=== PATIENT | female | born 1975 | race Caucasian/White ===

== ENCOUNTER 2021-05-24 14:41 | Emergency (ER) | payer OTHER ==
[~2021-05-24] VITALS: Ht 172.7 cm; Wt 93.4 kg
[2021-05-24] MEDS ORDERED: LACTATED RINGERS 1,000 ML IV STA (14:52)
--- NOTE | 2021-05-24 14:52 | ED Chest Pain ---
General Stated Complaint: CHEST PAIN Source: patient, other (urgent care LOCKER ROOM ATTENDANT) Exam Limitations: no limitations History of Present Illness Date Seen by Provider: May 24, 2021 Time Seen by Provider: 14:44 Initial Comments 45yoF with past medical history of hyperlipidemia coming in due to chest pain. She was at work around 1130, began feeling mid chest burning pain going through to her back that has been constant. No shortness of breath, nausea, vomiting, weakness, numbness, abdominal pain, or any other concerns associated with it. Presented to the urgent care, had an EKG done which was reportedly normal, and is referred here for further work-up. She says she has never had anything like this happen before. She denies any prior history of DVT or PE, no lower extremity swelling or pain, no recent long travel, no recent surgeries, no hemoptysis or cough, no shortness of breath, she does not take any hormones. She has had a hysterectomy in the past. She does not smoke. Allergies and Home Medications Allergies Coded Allergies: Penicillins (Verified Allergy, Unknown, 05/24/21) Sulfa (Sulfonamide Antibiotics) (Verified Allergy, Unknown, 05/24/21) Patient Home Medication List Home Medication List Reviewed: Yes Famotidine (Pepcid) 20 Mg Tablet, 20 MG PO DAILY Prescribed by: FARRUKH LOONEY on 05/24/21 6218 Review of Systems Review of Systems Constitutional: No chills, No fever EENTM: No Blurred Vision Respiratory: Denies Cough, Denies Shortness of Air Cardiovascular: Chest Pain Gastrointestinal: Denies Abdominal Pain, Denies Nausea, Denies Vomiting Genitourinary: No Symptoms Reported Musculoskeletal: no symptoms reported Skin: no symptoms reported Psychiatric/Neurological: No Symptoms Reported Endocrine: No Symptoms Reported Hematologic/Lymphatic: No Symptoms Reported All Other Systems Reviewed Negative Unless Noted: Yes Past Dczvleg-Prhzom-Mcqhcl Hx Patient Social History Tobacco Use?: No Past Medical History Surgeries: Yes Hysterectomy Physical Exam Vital Signs Vital Signs - First Documented 05/24/21 14:43 Temp 36.9 Pulse 105 Resp 19 B/P (MAP) 149/100 (116) O2 Delivery Room Air Capillary Refill : Height, Weight, BMI Height: '" Weight: lbs. oz. kg; BMI Method: General Appearance: No Apparent Distress, WD/WN HEENT: PERRL/EOMI, Normal ENT Inspection, Pharynx Normal Neck: Full Range of Motion, Normal Inspection, Non Tender, Supple Respiratory: Chest Non Tender, Lungs Clear, Normal Breath Sounds, No Accessory Muscle Use, No Respiratory Distress Cardiovascular: Regular Rate, Rhythm, No Edema, Normal Peripheral Pulses Gastrointestinal: Normal Bowel Sounds, Non Tender, Soft Extremity: Normal Capillary Refill, Normal Inspection, Normal Range of Motion, Non Tender, No Calf Tenderness, No Pedal Edema Neurologic/Psychiatric: Alert, No Motor/Sensory Deficits, Normal Mood/Affect Skin: Normal Color, Warm/Dry Lymphatic: No Adenopathy Progress/Results/Core Measures Results/Orders Lab Results Laboratory Tests Test 05/24/21 15:11 Range/Units White Blood Count 10.7 4.3-11.0 10^3/uL Red Blood Count 5.56 H 3.80-5.11 10^6/uL Hemoglobin 15.4 11.5-16.0 g/dL Hematocrit 46 35-52 % Mean Corpuscular Volume 83 80-99 fL Mean Corpuscular Hemoglobin 28 25-34 pg Mean Corpuscular Hemoglobin Concent 34 32-36 g/dL Red Cell Distribution Width 12.3 10.0-14.5 % Platelet Count 223 130-400 10^3/uL Mean Platelet Volume 10.6 9.0-12.2 fL Immature Granulocyte % (Auto) 0 % Neutrophils (%) (Auto) 64 42-75 % Lymphocytes (%) (Auto) 27 12-44 % Monocytes (%) (Auto) 5 0-12 % Eosinophils (%) (Auto) 3 0-10 % Basophils (%) (Auto) 1 0-10 % Neutrophils # (Auto) 6.9 1.8-7.8 10^3/uL Lymphocytes # (Auto) 2.9 1.0-4.0 10^3/uL Monocytes # (Auto) 0.5 0.0-1.0 10^3/uL Eosinophils # (Auto) 0.3 0.0-0.3 10^3/uL Basophils # (Auto) 0.1 0.0-0.1 10^3/uL Immature Granulocyte # (Auto) 0.0 0.0-0.1 10^3/uL Percent Immature Platelet Fraction 6.2 0.0-7.6 % Prothrombin Time 11.7 L 12.2-14.7 SEC INR Comment 0.8 0.8-1.4 Activated Partial Thromboplast Time 22 L 24-35 SEC D-Dimer 0.31 0.00-0.49 UG/ML Sodium Level 138 135-145 MMOL/L Potassium Level 3.8 3.6-5.0 MMOL/L Chloride Level 100 98-107 MMOL/L Carbon Dioxide Level 23 21-32 MMOL/L Anion Gap 15 H 5-14 MMOL/L Blood Urea Nitrogen 13 7-18 MG/DL Creatinine 0.82 0.60-1.30 MG/DL Estimat Glomerular Filtration Rate 89 BUN/Creatinine Ratio 16 Glucose Level 401 *H 70-105 MG/DL Calcium Level 10.0 8.5-10.1 MG/DL Corrected Calcium 8.5-10.1 MG/DL Magnesium Level 1.7 1.6-2.4 MG/DL Total Bilirubin 0.4 0.1-1.0 MG/DL Aspartate Amino Transf (AST/SGOT) 16 5-34 U/L Alanine Aminotransferase (ALT/SGPT) 22 0-55 U/L Alkaline Phosphatase 98 40-136 U/L Troponin I < 0.028 <0.028 NG/ML Total Protein 8.0 6.4-8.2 GM/DL Albumin 4.7 H 3.2-4.5 GM/DL Lipase 72 8-78 U/L My Orders Orders - FARRUKH LOONEY MD Ekg Tracing (05/24/21 14:49) Lidocaine 2% Viscous 15 Ml (Xylocaine Vi (05/24/21 15:00) Antacid Suspension (Mylanta Suspension (05/24/21 15:00) Lactated Ringers (Lr 1000 Ml Iv Solution (05/24/21 14:52) Cbc With Automated Diff (05/24/21 14:52) Magnesium (05/24/21 14:52) Chest 1 View, Ap/Pa Only (05/24/21 14:52) Ekg Tracing (05/24/21 14:52) Comprehensive Metabolic Panel (05/24/21 14:52) Protime With Inr (05/24/21 14:52) Partial Thromboplastin Time (05/24/21 14:52) O2 (05/24/21 14:52) Monitor-Rhythm Ecg Trace Only (05/24/21 14:52) Ed Iv/Invasive Line Start (05/24/21 14:52) Lipase (05/24/21 14:52) Fibrin Degradation Products (05/24/21 14:52) Troponin I Rhea (05/24/21 14:52) Aspirin Chewable Tablet (Baby Aspirin Ch (05/24/21 15:00) Medications Given in ED Current Medications Medications Dose Ordered Sig/Kareem Route Start Time Stop Time Status Last Admin Dose Admin Al Hydrox/Mg Hydrox/Simethicone 30 ml ONCE ONCE PO 05/24/21 15:00 05/24/21 15:01 DC 05/24/21 15:24 30 ML Aspirin 324 mg ONCE ONCE PO 05/24/21 15:00 05/24/21 15:01 DC 05/24/21 15:24 324 MG Lidocaine HCl 15 ml ONCE ONCE PO 05/24/21 15:00 05/24/21 15:01 DC 05/24/21 15:24 15 ML Vital Signs/I&O 05/24/21 14:43 Temp 36.9 Pulse 105 Resp 19 B/P (MAP) 149/100 (116) O2 Delivery Room Air Progress Progress Note : Progress Note 45-year-old female with above history coming in due to chest pain. ABCs were intact and vitals were stable on presentation although she is mildly tachycardic with a heart rate of 100. She does seem anxious on exam. She is low risk for PE per Douglas criteria, but given tachycardia will do a D-dimer to further rule stratify her. She has a heart score of 2, and the story does not sound very consistent with ACS. We will get a high-sensitivity troponin to further evaluate. EKG without acute ischemic changes. Chest x-ray without acute abnormalities as well. Labs later came back unremarkable including negative troponin and negative D- dimer. On reassessment after the GI cocktail the patient's symptoms had resolved. I believe she is stable for discharge with outpatient follow-up. She was sent home with strict return precautions. Of note, the patient's glucose was around 400. She did receive IV fluids. She says she is a known diabetic and does not like to take her metformin because she does not like the way it makes her stomach feel. She says she will be following up with [facility] to get a prescription for something. Initial ECG Impression Date: May 24, 2021 Initial ECG Impression Time: 14:52 Initial ECG Rate: 100 Initial ECG Rhythm: S.Tach Comment Narrow QRS, normal axis, no significant ST changes or T wave abnormalities other than some flattening in lead III, no prior EKG to compare to Diagnostic Imaging Diagonstic Imaging: Xray Plain Films/CT/US/NM/MRI: chest Comments [facility], [facility]. [place], [place] NAME: PATRICIA CHAU [facility] REC#: [id number] PT STATUS: REG ER : 1975 PHYSICIAN: FARRUKH LOONEY MD ADMIT DATE: 05/24/21/ER Draft Date of Exam:05/24/21 CHEST 1 VIEW, AP/PA ONLY INDICATION: Chest pain. FINDINGS: A single view of the chest demonstrates clear lungs bilaterally. The heart is normal. There is no pneumothorax. IMPRESSION: Negative chest. Dictated on workstation # [id number] Dict: 05/24/21 1546 Trans: 05/24/21 1548 [id number] Interpreted by: LARA GAYTAN Electronically signed by: Departure Impression Primary Impression: Chest pain Qualified Codes: R07.9 - Chest pain, unspecified Additional Impression: Hyperglycemia Disposition: 01 HOME, SELF-CARE Condition: Stable Departure-Patient Inst. Decision time for Depature: 15:54 Referrals: [facility] NO,LOCAL PHYSICIAN (PCP) Primary Care Physician Patient Instructions: Chest Pain That Is Not Caused by the Heart (DC) Add. Discharge Instructions: I think you are likely having symptoms related to acid refluxing up into your esophagus causing the burning pain. You can try buying [id number] Maalox max to take this when you have symptoms. I also wrote a prescription for Pepcid which you can try for the next month. If you begin having consistent chest pain that is worsening I want you to follow-up with your regular doctor to get a cardiology referral. Scripts Metformin HCl (Metformin HCl ER) 500 Mg Tab.er.24h 500 MG PO DAILY for 30 Days, #30 TAB Prov: FARRUKH LOONEY MD 05/24/21 Famotidine (Pepcid) 20 Mg Tablet 20 MG PO DAILY for 30 Days, #30 TAB Prov: FARRUKH LOONEY MD 05/24/21 Work/School Note: Work Release Form Date Seen in the Emergency Department: May 24, 2021 Return to Work: May 25, 2021 Restrictions: No Restrictions FARRUKH LOONEY MD May 24, 2021 14:52
[2021-05-24] MEDS ORDERED: ANTACID SUSP 30 ML UDC (MYLANTA) PO ONE (15:00)
[2021-05-24] MEDS ORDERED: LIDOCAINE 2% VISCOUS 15 ML UDC PO ONE (15:00)
[2021-05-24] MEDS ORDERED: ASPIRIN 81 MG CHEW (CHILDREN'S ASA) PO ONE (15:00)
[2021-05-24 15:18] LABS: BASOPHILS % (AUTO) 1 % (0-10); MEAN CORPUSCULAR HEMOGLOBIN 28 pg (25-34); MEAN PLATELET VOLUME 10.6 fL (9.0-12.2)
[2021-05-24 15:19] LABS: BASOPHILS # (AUTO) 0.1 10^3/uL (0.0-0.1); EOSINOPHILS # (AUTO) 0.3 10^3/uL (0.0-0.3); EOSINOPHILS % (AUTO) 3 % (0-10); HEMATOCRIT 46 % (35-52); HEMOGLOBIN 15.4 g/dL (11.5-16.0); LYMPHOCYTES # (AUTO) 2.9 10^3/uL (1.0-4.0); LYMPHOCYTES % (AUTO) 27 % (12-44); MEAN CORPUSCULAR HGB CONC 34 g/dL (32-36); MEAN CORPUSCULAR VOLUME 83 fL (80-99); MONOCYTES # (AUTO) 0.5 10^3/uL (0.0-1.0); MONOCYTES % (AUTO) 5 % (0-12); NEUTROPHILS # (AUTO) 6.9 10^3/uL (1.8-7.8); NEUTROPHILS % (AUTO) 64 % (42-75); PLATELET COUNT 223 10^3/uL (130-400); WHITE BLOOD COUNT 10.7 10^3/uL (4.3-11.0)
[2021-05-24 15:29] LABS: ALBUMIN 4.7 GM/DL (3.2-4.5); CHLORIDE 100 MMOL/L (98-107); POTASSIUM 3.8 MMOL/L (3.6-5.0); SODIUM 138 MMOL/L (135-145)
[2021-05-24 15:33] LABS: BILIRUBIN,TOTAL 0.4 MG/DL (0.1-1.0); CARBON DIOXIDE 23 MMOL/L (21-32)
[2021-05-24 15:35] LABS: ALKALINE PHOSPHATASE 98 U/L (40-136); CREATININE SERUM 0.82 MG/DL (0.60-1.30); GFR ESTIMATED 89
[2021-05-24 15:36] LABS: BUN/CREATININE RATIO 16
[2021-05-24 15:38] LABS: ALANINE AMINOTRANSFERASE 22 U/L (0-55); MAGNESIUM 1.7 MG/DL (1.6-2.4)
[2021-05-24 15:39] LABS: LIPASE 72 U/L (8-78)
[2021-05-24 15:41] LABS: INR 0.8 (0.8-1.4); PROTHROMBIN TIME PATIENT 11.7 SEC (12.2-14.7)
--- NOTE | 2021-05-24 15:48 | Diagnostic Imaging Report ---
INDICATION: Chest pain. FINDINGS: A single view of the chest demonstrates clear lungs bilaterally. The heart is normal. There is no pneumothorax. IMPRESSION: Negative chest. Dictated by: Dictated on workstation # [id number]
[2021-05-24] MEDS ORDERED: FAMO-119 PO (15:55)
[2021-05-24 15:57] LABS: GLUCOSE 401 MG/DL (70-105)
[2021-05-24] MEDS ORDERED: METF-865 PO (16:02)
[2021-05-24 16:07] VITALS: BP 149/82
== END 2021-05-24 16:07 | disposition home or self-care (01) ==
LOC: ER 14:43
DX: R07.9 Chest pain, unspecified (principal); R73.9 Hyperglycemia, unspecified
CPT/HCPCS: 36415; 71045; 80053; 83690; 83735; 84484; 85025; 85379; 85610; 85730; 93005; 93041